=== PATIENT | female | born 1985 | race Caucasian/White ===

== ENCOUNTER → 2017-01-18 | Outpatient (CLI) | payer OTHER | LOC: MOB LAB 09:31 | PROVIDERS: ATTEND Physician Assistant | DX: N92.6 Irregular menstruation, unspecified (principal); Z32.02 Encounter for pregnancy test, result negative | CPT/HCPCS: 36415; 84703 ==

== ENCOUNTER → 2017-02-26 | Outpatient (CLI) | payer OTHER ==
[2017-02-27 12:49] LABS: AMPHETAMINE SCREEN NEGATIVE (NEG); CANNABINOID SCREEN,URINE NEGATIVE (NEG); COCAINE SCREEN NEGATIVE (NEG); METHADONE URINE SCREEN NEGATIVE (NEG); METHAMPHETAMINES SCREEN,URINE NEGATIVE (NEG); OPIATE SCREEN,URINE NEGATIVE (NEG); TRICYCLIC ANTIDEPRESSANT,URINE NEGATIVE (NEG); URINE SAMPLE TYPE VOID; URINE SPECIFIC GRAVITY - MAN 1.003
== END ==
LOC: MOB LAB 13:28
PROVIDERS: ATTEND Obstetrics & Gynecology
DX: Z36 Encounter for antenatal screening of mother (principal)
CPT/HCPCS: 80305; 87491; 87591

== ENCOUNTER → 2017-03-13 | Outpatient (CLI) | payer OTHER ==
[2017-03-13 15:17] LABS: BASOPHILS # (AUTO) 0.02 10*3/UL; BASOPHILS % (AUTO) 0.2 % (0-1); EOSINOPHILS # (AUTO) 0.06 10*3/UL; EOSINOPHILS % (AUTO) 0.7 % (0-8); HEMATOCRIT 38.9 % (37.0-47.0); HEMOGLOBIN 13.1 g/dL (12.0-16.0); LYMPHOCYTES # (AUTO) 1.69 10*3/uL; MEAN CORPUSCULAR HGB CONC 33.7 g/dL (33-37); MEAN CORPUSCULAR VOLUME 89.2 FL (81-99); MEAN PLATELET VOLUME 10.8 FL (7.4-12.2); MONOCYTES % (AUTO) 6.9 % (5-15); NEUTROPHILS # (AUTO) 6.36 10*3/UL; NEUTROPHILS % (AUTO) 72.7 % (50-80); RED BLOOD COUNT 4.36 10^6/uL (4.20-5.40)
[2017-03-13 15:22] LABS: PLATELET MORPHOLOGY COMMENT NORMAL MORPHOLOGY (NORM); RBC MORPHOLOGY COMMENT NORMAL MORPHOLOGY (NORM); WBC MORPHOLOGY COMMENT NORMAL MORPHOLOGY (NORM)
[2017-03-13 15:41] LABS: HIV ANTIBODY NEGATIVE (N); HIV-1 P24 ANTIGEN NEGATIVE (N)
[2017-03-15 13:48] LABS: HEP B SURFACE AG Negative (Negative)
== END ==
LOC: MOB LAB 13:19
PROVIDERS: ATTEND Obstetrics & Gynecology
DX: Z36 Encounter for antenatal screening of mother (principal); Z3A.08 8 weeks gestation of pregnancy
CPT/HCPCS: 36415; 80081; 86900; 86901; 87088

== ENCOUNTER → 2017-06-04 | Outpatient (CLI) | payer OTHER ==
--- NOTE | 2017-06-04 16:52 | DI ---
OBSTETRICAL ULTRASOUND, 06/04/2017 12:58 PM: Clinical History: Antepartum screening. Previous Exam: None at this facility for this . ADJUSTED DATE FROM EARLY OBUS: 01/11/2017. There is a single live IUP currently in vertex presentation. Amnionic fluid content is normal. activity is observed as follows: cardiac, extremity, and respiratory. The placenta is anterior corpus and Grade 1. heart rate is 161 beats/minute and regular. There is a 3 vessel cord. The RVOT, L VOT and 4 chamber heart view are normal. The aortic arch and descending aorta are normal. Views of th e spine, face, and kidneys are unremarkable. BPD, HC, AC, and FL measurements are 48 mm, 181 mm , 153 mm, and 34 mm, respectively. These measurements correspond to EGA values of 20 weeks 4 days, 20 weeks 4 days, 20 weeks 4 days and 20 weeks 5 days, respectively. Composite EGA is 20 weeks 5 days. T he US EDC is 10/17/2017. EDC by adjusted LMP is 10/18/2017. Readin. Single live fetus with vertex presentation and normal amniotic fluid content. Placenta is anterio r corpus and grade 1. 2. The composite EGA is 20 weeks 5 days with an ultrasound EDC of 10/17/2017. Based on the adjusted LMP date of 01/11/2017, the EDC would be 10/18/2017. 3. The antepartum screening evaluation is normal.
== END ==
LOC: US 12:53
PROVIDERS: ATTEND Obstetrics & Gynecology
DX: Z36 Encounter for antenatal screening of mother (principal); Z3A.20 20 weeks gestation of pregnancy
CPT/HCPCS: 76805

== ENCOUNTER → 2017-06-24 | Outpatient (CLI) | payer OTHER | LOC: MOB LAB 15:39 | PROVIDERS: ATTEND Obstetrics & Gynecology | DX: Z36 Encounter for antenatal screening of mother (principal); Z3A.23 23 weeks gestation of pregnancy | CPT/HCPCS: 87491; 87591 ==

== ENCOUNTER → 2017-07-01 | Outpatient (CLI) | payer OTHER ==
--- NOTE | 2017-07-01 18:55 | DI ---
US OB , LIMITED, US OB TRANSVAGINAL,07/01/2017 3:04 PM: Clinical History: Verify dates Previous Exam: June 04, 2017 Findings: Multiple transabdominal and endovaginal grayscale and color Doppler sonographic images are obtained t hrough the pelvis demonstrate a single live intrauterine gestation in vertex presentation. The cervix is long and closed measuring 3.3 cm in length. Amniotic fluid index is normal measuring 16.8 cm. Detected Doppler heart tones measure 165 beats per minute. There is normal spontaneous motion. Estimated gestational age was determined by a composite of biparietal diameter, head circumference, a bdominal circumference and femur length yielding an estimated gestational age of 24 weeks zero days. Estimated weight is 624 g (15 percentile). The placenta is anterior and grade 1 without visible defects. Impression: Single live intrauterine gestation with size equal to dates.
== END ==
LOC: US 14:42
PROVIDERS: ATTEND Obstetrics & Gynecology
DX: O26.842 Uterine size-date discrepancy, second trimester (principal); O09.219 Supervision of pregnancy with history of pre-term labor, unspecified trimester; Z3A.24 24 weeks gestation of pregnancy
CPT/HCPCS: 76815; 76817

== ENCOUNTER 2017-10-02 04:28 | Inpatient (IN) ==
[2017-10-02] MEDS ORDERED: NORMAL SALINE 10 ML SYRINGE FLUSH IVP PRN ×2 (04:36→05:14)
[2017-10-02] MEDS ORDERED: ePHEDrine Inj 5 MG in Normal Saline Flush 1 ML IVP PRN (05:14)
[2017-10-02] MEDS ORDERED: TERBUTALINE SULFATE 1 MG/1 ML SDV SUBCUT PRN (05:14)
[2017-10-02] MEDS ORDERED: LIDOCAINE HCL 2 % 10 ML JELLY URO-JECT TOPICAL PRN ×2 (05:14→14:36)
[2017-10-02] MEDS ORDERED: Phenylephrine Inj 50 MCG in Normal Saline Flush 0.5 ML IVP PRN (05:14)
[2017-10-02] MEDS ORDERED: METHYLERGONOVINE MALEATE 0.2 MG/1 ML VIAL IM PRN (05:14)
[2017-10-02] MEDS ORDERED: OXYTOCIN 10 UNIT/1 ML IM PRN (05:14)
[2017-10-02] MEDS ORDERED: NALOXONE 0.4 MG/1 ML VIAL IVP PRN (05:14)
[2017-10-02] MEDS ORDERED: CITRIC ACID/SODIUM CITRATE 30 ML CUP PO PRN (05:14)
[2017-10-02] MEDS ORDERED: Famotidine Inj 20 MG in Normal Saline Flush 10 ML IVP PRN ×4 (05:14)
[2017-10-02] MEDS ORDERED: fentaNYL Inj 100 MCG/2 ML VIAL IV PRN (05:14)
[2017-10-02] MEDS ORDERED: CefOXitin Inj 2 GM in Sodium Chloride 0.9% 100 ML IV PRN (05:14)
[2017-10-02] MEDS ORDERED: BUTORPHANOL TARTRATE 2 MG/1 ML VIAL IVP PRN (05:14)
[2017-10-02] MEDS ORDERED: Nalbuphine Inj 20 MG/ML Ampule IVP PRN (05:14)
[2017-10-02] MEDS ORDERED: MISOPROSTOL 200 MCG TABLET RECTAL PRN (05:14)
[2017-10-02] MEDS ORDERED: LIDOCAINE W/ SODIUM BICARB 0.5 ML SYR SUBD PRN (05:14)
[2017-10-02] MEDS ORDERED: Metoclopramide Inj 10 MG/2 ML VIAL IV PRN (05:14)
[2017-10-02] MEDS ORDERED: Carboprost Inj 250 MCG/ML AMP IM PRN (05:14)
[2017-10-02] MEDS ORDERED: diphenhydrAMINE 50 MG/1 ML VIAL IVP PRN ×2 (05:14→14:36)
[2017-10-02] MEDS ORDERED: Naloxone Inj 0.01 MG in Normal Saline Flush 1 ML IVP PRN (05:14)
[2017-10-02] MEDS ORDERED: CALCIUM CARBONATE 500 MG (TUMS) CHEWABLE TABLET PO PRN ×2 (05:14→14:36)
[2017-10-02] MEDS ORDERED: Lidocaine 1% 10 MG/ML - 20 ML VIAL SUBCUT PRN (05:14)
[2017-10-02] MEDS ORDERED: ONDANSETRON 4 MG/2 ML VIAL IVP PRN (05:14)
[2017-10-02] MEDS ORDERED: Oxytocin 20 Units + LR 20 UNIT/1,000 ML BAG IV SCH ×3 (05:15→14:36)
[2017-10-02] MEDS: Lactated Ringers-OB Dept 1,000 ML PRIMARY IV SCH ×4 (05:30→07:48)
[2017-10-02 05:48] LABS: Hemoglobin [HGB] 10.9 g/dL (12.0-16.0); MEAN CORPUSCULAR HEMOGLOBIN 30.5 PG (27-31); MEAN CORPUSCULAR VOLUME 92.4 FL (81-99); MEAN PLATELET VOLUME 11.3 FL (7.4-12.2); RED BLOOD COUNT 3.57 10^6/uL (4.20-5.40)
[2017-10-02] MEDS ORDERED: Fent/Bupiv 2mcg/0.0625% Epid 250 ML ONE (06:24)
--- NOTE | 2017-10-02 07:04 | CRNA.PROCE ---
Central Neuraxis Block Placemt - - Safety Measures: Time Out Taken, Site Verified - - Type of Block: Epidural Reason for Block: Analgesia Moniters Used During Block: SPO2, NIBP Positioning: Sitting Skin Prep Used: ChloroPrep Draped: Yes Skin Infiltration - Enter Amount Used in Comment Field: 1% Xylocaine (mL): Yes ( skinwheal) Spinal Needle Used: 18 Hustead 80 mm Local Anesthetic - Enter Amount Used in Comment Field: 1.5 % Xylocaine with Epinephrine 1:200,000 (mL): Yes (5) Number of Centimeters Catheter Threaded: 4 Bioclusive Dressing Applied: Yes - - Additional Details: First attempt was at L3L4, crisp JAMES however, appears to have a wet tap. changed location to L2L3 normal epidural catheter placement. Increased risk for Post Dural Puncture ELIZABETH. This was discussed with the patient and nursing staff as to her elevated risk. Anesthesia Time - Other Weight: 47.536 kg Height: 5 ft 5 in Body Mass Index (BMI): 17.4
[2017-10-02] MEDS ORDERED: fentaNYL 2 MCG/BUPIVACAINE 0.0625%/NS 0.9% 250 ML BAG EPIDURAL SCH (07:15)
--- NOTE | 2017-10-02 08:18 | OB.PROGRES ---
Interval History: 37 5/7 week EGA admitted in labor. Epidural placed and working well. Cervix 3-4/75%/-1. FHRT category 1. Amniotomy performed with return of clear fluid. Anticipate . Objective - Labs CBC and BMP: 10/02/17 05:30 - Vital Signs Last Taken Vital Signs: Vital Signs - Last Taken Temperature 98.1 F 10/02/17 04:41 Pulse Rate 90 10/02/17 04:41 Respiratory Rate 18 10/02/17 04:41 Blood Pressure 135/85 10/02/17 04:41 Pulse Ox 100 10/02/17 07:00
--- NOTE | 2017-10-02 14:17 | OB.DEL.SUM ---
Delivery Note Delivery Summary: This 32-year-old 3 now para 3 female presented today in early labor at 37-6/7 weeks estimated gestational age. Amniotomy was performed at 3 cm dilation with return of clear amniotic fluid. heart rate tracing was category 1 throughout the labor course. She progressed through active labor with minimal Pitocin augmentation and epidural analgesia. She achieved complete dilation and pushed for a short time to of a viable male with Apgars of 9/9, and a weight of 5 lb 8oz, over a small second-degree perineal laceration from an OA position. The placenta delivered spontaneously, promptly, intact, with a three-vessel cord. Cord gases were normal. Repair was made with 3-0 Vicryl Rapide suture in the usual manner after local infiltration with 1% lidocaine. Estimated blood loss was 200 mL's. There were no complications. Mother and baby tolerated delivery well.
[2017-10-02] MEDS ORDERED: ACETAMINOPHEN 325 MG TABLET PO PRN (14:36)
[2017-10-02] MEDS ORDERED: LANOLIN HPA 40 GM TUBE TOPICAL PRN (14:36)
[2017-10-02] MEDS ORDERED: DIPH,PERTUSS,TET(ADACEL) VAC/PF 0.5 ML (Tdap) IM ONE (14:36)
[2017-10-02] MEDS ORDERED: GLYCERIN/WITCH HAZEL 1 BOX TOPICAL PRN (14:36)
[2017-10-02] MEDS ORDERED: Ondansetron ODT Tab 4 MG TAB PO PRN (14:36)
[2017-10-02] MEDS ORDERED: HYDROcodone-APAP 5 MG -325 MG TABLET PO PRN (14:36)
[2017-10-02] MEDS ORDERED: diphenhydrAMINE 25 MG CAPSULE PO PRN (14:36)
[2017-10-02] MEDS ORDERED: RHO(D) IMMUNE GLOBULIN 1500 UNIT(300 mcg)SYRIN IM PRN (14:36)
[2017-10-02] MEDS ORDERED: BENZOCAINE/MENTHOL SPRAY 56 GM BOTTLE TOPICAL PRN (14:36)
[2017-10-02] MEDS: KETOROLAC 30 MG/1 ML VIAL IVP SCH (18:55)
[2017-10-02] MEDS: Lactated Ringers 1,000 ML PRIMARY IV SCH (18:56)
[2017-10-02] MEDS ORDERED: oxyCODONE-ACETAMINOPHEN 5-325 TAB PO PRN (21:00)
[2017-10-02] MEDS: DOCUSATE 100 MG CAPSULE PO SCH (22:36)
[2017-10-03] MEDS: Lactated Ringers 1,000 ML PRIMARY IV SCH ×3 (00:08→18:20)
[2017-10-03] MEDS: KETOROLAC 30 MG/1 ML VIAL IVP SCH ×2 (00:59→07:25)
[2017-10-03 06:45] LABS: Hematocrit [HCT] 26.3 % (37.0-47.0); Hemoglobin [HGB] 8.6 g/dL (12.0-16.0); MEAN CORPUSCULAR HEMOGLOBIN 30.9 PG (27-31); MEAN CORPUSCULAR HGB CONC 32.7 g/dL (33-37); MEAN CORPUSCULAR VOLUME 94.6 FL (81-99); MEAN PLATELET VOLUME 9.8 FL (7.4-12.2); RED BLOOD COUNT 2.78 10^6/uL (4.20-5.40)
[2017-10-03] MEDS ORDERED: CITRIC ACID/SODIUM CITRATE 30 ML CUP PO ONE (06:53)
[2017-10-03] MEDS ORDERED: Metoclopramide Inj 10 MG/2 ML VIAL IVP ONE (06:53)
[2017-10-03] MEDS ORDERED: Famotidine Inj 20 MG in Normal Saline Flush 10 ML IVP ONE (06:53)
[2017-10-03] MEDS ORDERED: LIDOCAINE MPF 2% - 5 ML (20 MG/1 ML) ONE (07:40)
[2017-10-03] MEDS ORDERED: BUPIVACAINE 0.5% W/ EPI - 10 ML VIAL ONE (07:42)
[2017-10-03] MEDS ORDERED: Sodium Chloride 0.9% vial 10 ML ONE (07:42)
[2017-10-03] MEDS ORDERED: MORPHINE SULFATE/PF 10 MG/10 ML AMPULE ONE (07:45)
[2017-10-03] MEDS: ONDANSETRON 4 MG/2 ML VIAL IVP PRN ×2 (07:47→15:13)
[2017-10-03] MEDS: NORMAL SALINE 10 ML SYRINGE FLUSH IVP PRN ×3 (07:48→15:13)
[2017-10-03] MEDS ORDERED: Chloroprocaine 3% MPF (30mg/ml) 20ml vial ONE (08:04)
[2017-10-03] MEDS ORDERED: MIDAZOLAM 5 MG/1 ML ONE (08:13)
--- NOTE | 2017-10-03 08:29 | OB.OP.NOTE ---
Operative Report Surgeon: Susanna Anesthesia Type: Regional Anesthesia Provider: Burak Duran CRNA Surgery Date: 10/03/17 Preoperative Diagnosis: Desires Sterilization Postoperative Diagnosis: Same Procedure: PPTL with Filshie Clips Estimated Blood Loss (mL): 0 Fluids: 300 ml Complications: None Findings at Surgery: Normal tubes and ovaries Indications for the Procedure: P3 desires sterilization. Description of Procedure: The patient was taken to the operating room and placed supine on the operating table. Her previously placed epidural was dosed and she was sedated. Adequacy of anesthesia was tested and found to be adequate. An infraumbilical transverse incision was made approximately 1 inch in length. Subcutaneous tissue and fascia were divided with Bovie cautery and the peritoneal cavity was entered with Bovie cautery. A small Zack retractor was placed. The right fallopian tube was identified and followed to its fimbriated end. A single Filshie clip was applied to the mid isthmic portion of the tube. The left fallopian tube was then identified and followed to its fimbriated end. A single Filshie clip was applied to the mid isthmic portion of the left tube. Both ovaries were inspected and found to be normal. The Zack retractor was then removed and the fascia was closed with a running 0 Vicryl suture. The skin was closed with Dermabond and the wound was dressed. Sponge, lap, and needle counts were correct 2. There were no complications at surgery. The patient left to recovery in good condition. Plan: Resume routine care.
--- NOTE | 2017-10-03 08:31 | OB.PROGRES ---
Subjective Post Op Day: 1 Pain Management: PO Garcia Catheter: No Flatus: Yes Diet: Regular Feeding Method: Exculsively Ambulating: Yes Concerns / Additional Information: The patient is doing well and has no complaints. PPTL done this morning. Anticipate discharge tonight or tomorrow morning. Assesstment / Plan Assessment / Plan: PPD 1 doing well. CCM.
--- NOTE | 2017-10-03 08:53 | CRNA.PROGR ---
Post Anesthesia Phase II - Post Anesthesia Phase II Care Assumed By Surgeon: Marquise Mullins MD Temperature: 97.6 F Pulse Rate: 66 Respiratory Rate: 16 Blood Pressure: 98/64 Pulse Ox: 98 Total Traci Score at Discharge: 9 Post Anesthesia Discharge Criteria Met: Yes
--- NOTE | 2017-10-03 08:53 | CRNA.PROGR ---
Anesthesia Time - - Start date: 10/03/17 End date: 10/03/17 - Procedure/Recovery Time Anesthesia : Time In: 07:53 Anesthesia : Time Out: 08:30 Anesthesia : Total Time: 37 - Total Anesthesia Time Total Anesthesia Time (minutes): 37 - Other Weight: 44.679 kg Height: 5 ft 5 in Body Mass Index (BMI): 16.4 Anesthesia Type: Epidural
--- NOTE | 2017-10-03 09:06 | CRNA.PROGR ---
Anesthesia Time - - Start date: 10/02/17 - Procedure/Recovery Time Anesthesia : Time In: 06:20 - Other Weight: 44.679 kg Height: 5 ft 5 in Body Mass Index (BMI): 16.4 Physical Status: P2 Anesthesia Type: Epidural Obstetrics: Planned vaginal delivery w/ neuraxial labor anesthesia/analog
[2017-10-03] MEDS: Nalbuphine Inj 20 MG/ML Ampule IVP PRN ×2 (13:17→15:12)
--- NOTE | 2017-10-03 15:12 | CRNA.PROGR ---
Anesthesia Time - - Start date: 10/03/17 End date: 10/03/17 - Procedure/Recovery Time Anesthesia : Time In: 07:53 Anesthesia : Time Out: 08:30 Anesthesia : Total Time: 37 - Total Anesthesia Time Total Anesthesia Time (minutes): 37 - Other Weight: 44.679 kg Height: 5 ft 5 in Body Mass Index (BMI): 16.4 Physical Status: P1 Anesthesia Type: Epidural (used existing epidural from labor on 10/02/17)
[2017-10-03] MEDS: Prenatal Multivitamin Tab 1 TAB TAB PO SCH (18:21)
[2017-10-03] MEDS: DOCUSATE 100 MG CAPSULE PO SCH ×2 (18:21→20:52)
[2017-10-03] MEDS: IBUPROFEN 800 MG TABLET PO PRN (20:52)
[2017-10-04 08:16] VITALS: BP 133/74; RESP 14; TEMP 98.4; O2SAT 94
[2017-10-04] MEDS: Prenatal Multivitamin Tab 1 TAB TAB PO SCH (08:30)
[2017-10-04] MEDS: DOCUSATE 100 MG CAPSULE PO SCH (08:30)
[2017-10-04] MEDS: IBUPROFEN 800 MG TABLET PO PRN (08:31)
--- NOTE | 2017-10-04 09:25 | OB.PROGRES ---
Subjective Post Op Day: 2 Pain Management: PO Garcia Catheter: No Flatus: Yes Diet: Regular Feeding Method: / Bottle Ambulating: Yes Objective - General General Appearance: POSITIVE: No Acute Distress, Cooperative - Cardiovacular Cardiovascular Exam: POSITIVE: RRR, No Murmur Edema: +1 Pedal Edema Extremities: Negative Priscila's - Bilaterally - Respiratory Respiratory Exam: POSITIVE: Clear to Auscultation - Bilaterally, Breathing Non Labored Assesstment / Plan (1) Status post vaginal delivery Current Visit: Yes Status: Acute Assessment / Plan: -rubella immune. -rh positive. -currently bottle feeding, waiting for her milk to come in. -if she has any further sx of spinal sierra, will ask anesthesia to evaluate her. -d/c home this morning.
--- NOTE | 2017-10-04 09:35 | DCSUMMARY ---
Hospitalization Summary Admit Date: 10/02/17 Discharge Date: 10/04/17 Secondary Diagnosis:: , delivered Primary Surgery and Date: on 10/02. BTL per Dr. Mullins on 10/03. Delivery Type: Vaginal Hospital Course: Pt was admitted in labor, had a normal vaginal delivery. Her course was complicated by a spinal ELIZABETH. This resolved with fluids, caffeine and rest. She had a bilateral tubal ligation on 10/03, which was uncomplicated. She is feeling well today and is requesting discharge home. / Postop Complications: see above. Palmer Complications: none Exam - Vitals Vital Signs: Vital Signs Temperature 98.4 F Temperature Source Oral Pulse Rate [Apical] 80 Pulse Rate [Pulse Oximeter] 68 Pulse Rate 59 Respiratory Rate 14 Blood Pressure [Right Arm] 133/74 Blood Pressure 118/72 Pulse Ox 94 Oxygen Flow Rate 1 Oxygen Delivery Method Room Air Height 5 ft 5 in Weight 98 lb 8 oz - General General Appearance: No Acute Distress, Cooperative - Head Head Exam: Normal Inspection - ENT ENT Exam: POSITIVE: Normal Exam - Neck Neck Exam: Normal Inspection - Respiratory Respiratory Exam: POSITIVE: Clear to Auscultation - Bilaterally, Breathing Non Labored - Cardiovascular Cardiovascular Exam: POSITIVE: RRR, No Murmur - GI/Abdominal GI/Abdominal Exam: POSITIVE: Normal Bowel Sounds, Non Tender, Non Distended, Soft Additional GI/Abdominal Exam Details: umbilical incision is c/d/i. - Extremities Extremities Exam: POSITIVE: Normal Inspection, +1 Edema - Back Back Exam: POSITIVE: Normal Inspection - Neurological Neurological Exam: POSITIVE: Alert, Oriented x 3 - Psychiatric Psychiatric Exam: POSITIVE: Normal Affect, Normal Mood - Integumentary Integumentary Exam: POSITIVE: Normal Color, Warm, Dry Patient Problems - Patient Problem List (1) Status post vaginal delivery Current Visit: Yes Status: Acute Category: Medical
[2017-10-04] MEDS ORDERED: LANOLIN HPA 40 GM TUBE TOPICAL ONE (12:03)
== END 2017-10-04 11:00 | disposition home or self-care (01) | DRG 767 ==
LOC: OBOP 04:28 → OBIP 05:18
PROVIDERS: ADMIT Obstetrics & Gynecology; ATTEND Obstetrics & Gynecology